=== PATIENT | female | born 1970 | race American Indian/Alaskan Native ===

== ENCOUNTER 2017-03-03 20:07 | Emergency (ER) | payer OTHER ==
[2017-03-03 20:48] LABS: Basophils % (Auto) 0.3 % (0.0-1.8); Eosinophils % (Auto) 2.1 % (0.0-4.3); Hematocrit 32.8 % (30.3-42.9); Hemoglobin 10.3 gm/dl (10.1-14.3); Mean Corpuscular HGB Conc 31 % (30-34); Mean Corpuscular Volume 75 fl (79-97); Platelet Count 326 K/mm3 (140-440); Red Blood Count 4.37 M/mm3 (3.65-5.03); Red Cell Distribution Width 18.3 % (13.2-15.2); White Blood Count 9.1 K/mm3 (4.5-11.0)
[2017-03-03 20:49] LABS: Mean Corpuscular Hemoglobin 24 pg (28-32)
[2017-03-03 20:59] LABS: Alanine Aminotransferase 14 units/L (7-56); Albumin/Globulin Ratio 1.1 %; Anion Gap 16 mmol/L; BUN/Creatinine Ratio 17.14; Bilirubin,Total < 0.20 mg/dL (0.1-1.2); Blood Urea Nitrogen 12 mg/dL (7-17); Calcium 9.3 mg/dL (8.4-10.2); Carbon Dioxide 26 mmol/L (22-30); Chloride 99.1 mmol/L (98-107); Glucose 130 mg/dL (65-100); Lipase 44 units/L (13-60); Potassium 3.6 mmol/L (3.6-5.0); Sodium 137 mmol/L (137-145); Total Protein 7.6 g/dL (6.3-8.2)
[2017-03-03 21:00] LABS: Bilirubin,Urine Negative (Negative); Ketones,Urine Negative (Negative)
[2017-03-03 21:01] LABS: Blood,Urine Negative (Negative); Leukocyte Esterase,Urine Negative (Negative); Mucus,Urine 3+ /HPF; Nitrite,Urine Negative (Negative); Protein,Urine <15 mg/dL mg/dL (Negative); Urobilinogen,Urine < 2.0 mg/dL (<2.0); WBC,Urine < 1.0 /HPF (0.0-6.0)
[2017-03-03 21:16] LABS: Alkaline Phosphatase 93 units/L (35-129)
[2017-03-03] MEDS ORDERED: TORADOL IM ONE (21:49)
--- NOTE | 2017-03-03 21:50 | Emergency Department Report ---
ED Female HPI - General Chief complaint: Abdominal Pain Stated complaint: ABD PAIN/MISSED CYCLE Time Seen by Provider: 03/03/17 20:47 Source: patient Mode of arrival: Ambulatory Limitations: No Limitations - History of Present Illness Initial comments: This is a pleasant 46-year-old female who reports 2 day history of increased low -dose of left buttock pain. She indicates as well that she missed her period which usually begins at the beginning of the month. She states that this is unusual for her. She denies any back pain associated with this. She denies any nausea or vomiting associated with this. She denies any vaginal discharge or dyspareunia. She denies any distress. As well. She denies any specific trauma. States that pain has come on gradually and is somewhat accident and wanes. No fevers reported as well. Severity scale (0 -10): 8 Quality: sharp Are you Now?: No - Related Data Previous Rx's Medication Instructions Recorded Last Taken Type Acetaminophen/Codeine [Tylenol #3] 1 tab PO Q6H PRN #15 tab 06/17/15 Unknown Rx Ferrous Sulfate [Feosol 325 MG tab] 325 mg PO TID #90 tablet 06/17/15 Unknown Rx Ibuprofen [Motrin 800 MG tab] 800 mg PO Q8HR PRN #30 tablet 06/17/15 Unknown Rx Nitrofurantoin [place]/M-Cryst 100 mg PO Q12HR #20 capsule 06/17/15 Unknown Rx [Macrobid CAP] Phenazopyridine [Pyridium] 200 mg PO TID PRN #6 tab 06/17/15 Unknown Rx Acetaminophen/Codeine [Tylenol #3] 1 tab PO Q6H PRN #15 tab 07/26/15 Unknown Rx Ibuprofen [Motrin 800 MG tab] 800 mg PO Q8HR PRN #30 tablet 07/26/15 Unknown Rx HYDROcodone/APAP 5-325 [[place] 1 each PO Q6H PRN #20 tablet 03/03/17 Unknown Rx 5/325] Allergies Allergy/AdvReac Type Severity Reaction Status Date / Time No Known Allergies Allergy Verified 03/03/17 20:12 ED Review of Systems ROS: Stated complaint: ABD PAIN/MISSED CYCLE Other details as noted in HPI Comment: All other systems reviewed and negative Constitutional: denies: chills, fever Eyes: denies: eye pain, eye discharge, vision change ENT: denies: ear pain, throat pain Respiratory: denies: cough, shortness of breath, wheezing Cardiovascular: denies: chest pain, palpitations Endocrine: no symptoms reported Gastrointestinal: abdominal pain. denies: nausea, diarrhea Genitourinary: denies: urgency, dysuria, hematuria, discharge, dyspareunia Musculoskeletal: denies: back pain, joint swelling, arthralgia Skin: denies: rash, lesions Neurological: denies: headache, weakness, paresthesias Psychiatric: denies: anxiety, depression Hematological/Lymphatic: denies: easy bleeding, easy bruising ED Past Medical Hx - Past Medical History Previous Medical History?: No Additional medical history: Endometriosis - Surgical History Past Surgical History?: No Additional Surgical History: Tubaligation - Social History Smoking Status: Never Smoker Substance Use Type: Alcohol - Medications Home Medications: Home Medications Medication Instructions Recorded Confirmed Last Taken Type Acetaminophen/Codeine [Tylenol #3] 1 tab PO Q6H PRN #15 tab 06/17/15 Unknown Rx Ferrous Sulfate [Feosol 325 MG tab] 325 mg PO TID #90 tablet 06/17/15 Unknown Rx Ibuprofen [Motrin 800 MG tab] 800 mg PO Q8HR PRN #30 tablet 06/17/15 Unknown Rx Nitrofurantoin [place]/M-Cryst 100 mg PO Q12HR #20 capsule 06/17/15 Unknown Rx [Macrobid CAP] Phenazopyridine [Pyridium] 200 mg PO TID PRN #6 tab 06/17/15 Unknown Rx Acetaminophen/Codeine [Tylenol #3] 1 tab PO Q6H PRN #15 tab 07/26/15 Unknown Rx Ibuprofen [Motrin 800 MG tab] 800 mg PO Q8HR PRN #30 tablet 07/26/15 Unknown Rx HYDROcodone/APAP 5-325 [[place] 1 each PO Q6H PRN #20 tablet 03/03/17 Unknown Rx 5/325] ED Physical Exam - General Limitations: No Limitations General appearance: alert, in no apparent distress - Head Head exam: Present: atraumatic, normocephalic - Eye Eye exam: Present: normal appearance, EOMI. Absent: scleral icterus - ENT ENT exam: Present: normal exam, normal orophraynx, mucous membranes moist - Neck Neck exam: Present: normal inspection, full ROM. Absent: tenderness, lymphadenopathy - Respiratory Respiratory exam: Present: normal lung sounds bilaterally. Absent: respiratory distress, wheezes, rales - Cardiovascular Cardiovascular Exam: Present: regular rate, normal rhythm. Absent: systolic murmur, diastolic murmur, rubs, gallop - GI/Abdominal GI/Abdominal exam: Present: soft, tenderness (very point tenderness in the very low left suprapubic region. There is a firm knot noted in this region as well that I suspect is related to a fibroid from the uterus. No hernia is appreciated. No adenopathy appreciated in the groin region. No erythema. No rebound or guarding of this area.), normal bowel sounds - Extremities Exam Extremities exam: Present: normal inspection. Absent: tenderness, pedal edema, calf tenderness - Back Exam Back exam: Present: normal inspection. Absent: tenderness, CVA tenderness (R), CVA tenderness (L) - Neurological Exam Neurological exam: Present: alert, oriented X3, normal gait - Psychiatric Psychiatric exam: Present: normal affect, normal mood - Skin Skin exam: Present: warm, dry, intact, normal color. Absent: rash ED Course Vital Signs 03/03/17 03/03/17 03/03/17 20:12 21:52 21:57 Temperature 98.5 F 98.2 F Pulse Rate 91 H 99 H Respiratory 16 16 16 Rate Blood Pressure 134/80 Blood Pressure 121/68 [121/68] O2 Sat by Pulse 100 100 99 Oximetry 03/03/17 22:22 Temperature Pulse Rate Respiratory 18 Rate Blood Pressure Blood Pressure [121/68] O2 Sat by Pulse Oximetry - Reevaluation(s) Reevaluation #1: 03/04/17 19:38 Lab studies were obtained as well as urinalysis. These were both unremarkable. Formal ultrasound was obtained as well. This did demonstrate several fibroids. I have a strong suspicion that she has an involuting fibroid as etiology for her discomfort. She is in the age group where she could definitely be perimenopausal. I suspect that she is going through some hormonal changes and that his reason for the N ovulation this month. I also suspect this is etiology for her having the pain, this time as the blood supply to her relatively large fibroid is being diminished. I did encourage OB follow- up for continued care. She does not have a surgical abdomen at this time. She is otherwise tolerating by mouth well. Her pain was managed here appropriately. She is comfortable with plan as described. Increased return if any worsening. ED Medical Decision Making - Lab Data Result diagrams: 03/03/17 20:25 03/03/17 20:25 - Radiology Data Left ovary not specifically visualized. Right ovary with normal appearance. Uterus with several large fibroids. Critical care attestation.: If time is entered above; I have spent that time in minutes in the direct care of this critically ill patient, excluding procedure time. ED Disposition Clinical Impression: Pelvic pain Uterine fibroid Qualifiers: Uterine leiomyoma location: unspecified location Qualified Code(s): D25.9 - Leiomyoma of uterus, unspecified Disposition: DISCHARGED TO HOME OR SELFCARE Is pt being admited?: No Does the pt Need Aspirin: No Condition: Stable Instructions: Uterine Fibroids (ED) Prescriptions: HYDROcodone/APAP 5-325 [[place] 5/325] 1 each PO Q6H PRN #20 tablet PRN Reason: Pain Referrals: PRIMARY MD ROYA [Primary Care Provider] - 3-5 Days LANDEN GODINEZ MD [Staff Physician] - 3-5 Days Time of Disposition: 23:44
[2017-03-03 21:58] VITALS: BP 121/68
--- NOTE | 2017-03-03 23:04 | Ultrasound Report ---
FINAL REPORT PROCEDURE: US PELVIC TRANSVAGINAL TECHNIQUE: Real-time TRANSVAGINAL l sonography in multiple planes of pelvis was performed with image documentation. This examination was performed without Doppler. Vascular abnormalities, including ovarian torsion, will not be detectable without Doppler evaluation. HISTORY: pelvic pain COMPARISON: No prior studies are available for comparison. FINDINGS: UTERUS Size: 12.8 x 8.3 x 7.9 cm. Endometrial thickness: 2.5 mm. Orientation: anteverted. Cervix: Normal. Fibroids/masses: There are 2 uterine fibroids measuring 5.3 and 7 centimeters.. RIGHT Ovary: 2.7 x 1.7 x 1.9 cm. Appearance: Normal. LEFT Ovary: Not identified. Pelvic fluid: Minimal. Other: None. IMPRESSION: There are uterine fibroids. There is no endometrial fluid. Right ovary is unremarkable. Left ovary is not seen. There is minimal free pelvic fluid which is nonspecific.
--- NOTE | 2017-03-03 23:04 | Ultrasound Report ---
FINAL REPORT PROCEDURE: US PELVIC COMPLETE TECHNIQUE: Real-time transabdominal sonography in multiple planes of pelvis was performed with image documentation. This examination was performed without Doppler. Vascular abnormalities, including ovarian torsion, will not be detectable without Doppler evaluation. CPT 51807 HISTORY: pelvic pain COMPARISON: No prior studies are available for comparison. FINDINGS: UTERUS Size: 12.8 x 8.3 x 7.9 cm. Endometrial thickness: 2.5 mm. Orientation: anteverted. Cervix: Normal. Fibroids/masses: There are 2 uterine fibroids measuring 5.3 and 7 centimeters.. RIGHT Ovary: 2.7 x 1.7 x 1.9 cm. Appearance: Normal. LEFT Ovary: Not identified. Pelvic fluid: Minimal. Other: None. IMPRESSION: There are uterine fibroids. There is no endometrial fluid. Right ovary is unremarkable. Left ovary is not seen. There is minimal free pelvic fluid which is nonspecific.
== END 2017-03-03 23:54 | disposition home or self-care (01) ==
LOC: ED 20:07
DX: D25.9 Leiomyoma of uterus, unspecified (principal); R10.2 Pelvic and perineal pain; N80.9 Endometriosis, unspecified
CPT/HCPCS: 36415; 76830; 76856; 80053; 81001; 83690; 84703; 85025; 96372; 99284; J1885

== ENCOUNTER 2017-05-29 16:59 | Emergency (ER) | payer OTHER ==
[2017-05-29 17:25] VITALS: BP 149/97
[2017-05-29 18:02] LABS: Eosinophils % (Auto) 2.6 % (0.0-4.3); Hematocrit 31.9 % (30.3-42.9); Hemoglobin 10.2 gm/dl (10.1-14.3); Mean Corpuscular HGB Conc 32 % (30-34); Mean Corpuscular Volume 77 fl (79-97); Platelet Count 361 K/mm3 (140-440); Red Blood Count 4.12 M/mm3 (3.65-5.03); Red Cell Distribution Width 18.6 % (13.2-15.2); White Blood Count 7.9 K/mm3 (4.5-11.0)
[2017-05-29 18:03] LABS: Mean Corpuscular Hemoglobin 25 pg (28-32)
--- NOTE | 2017-05-30 16:12 | ED Elopement Review ---
ED Pt Elopement review - Results review Lab results: Laboratory Tests 05/29/17 05/29/17 05/29/17 17:28 17:28 18:00 WBC 7.9 RBC 4.12 Hgb 10.2 Hct 31.9 MCV 77 L MCH 25 L MCHC 32 RDW 18.6 H Plt Count 361 Lymph % (Auto) 18.9 [place] % (Auto) 12.0 H Eos % (Auto) 2.6 Baso % (Auto) 1.0 Lymph # 1.5 [place] # 0.9 H Eos # 0.2 Baso # 0.1 Seg Neutrophils % 65.5 Seg Neutrophils # 5.2 HCG, Quant < 2 Blood Type O POSITIVE Antibody Screen TNR SANDEE Antibody Screen Negative - Call Back decision Pt Call Back Decision: Pt to F/U with PMD (Follow up with your PCP for blood count)
== END 2017-05-30 04:05 | disposition left against medical advice (07) ==
LOC: ED 16:59
DX: N93.9 Abnormal uterine and vaginal bleeding, unspecified (principal); N80.9 Endometriosis, unspecified; Z87.891 Personal history of nicotine dependence; Z53.21 Procedure and treatment not carried out due to patient leaving prior to being seen by health care provider
CPT/HCPCS: 36415; 84702; 85025; 86850; 86900; 86901

== ENCOUNTER 2018-07-01 17:42 | Emergency (ER) | payer OTHER ==
[2018-07-01 17:50] VITALS: BP 146/85
== END 2018-07-01 21:11 | disposition left against medical advice (07) ==
LOC: ED 17:42
DX: H57.12 Ocular pain, left eye (principal); Z53.21 Procedure and treatment not carried out due to patient leaving prior to being seen by health care provider